=== PATIENT | female | born 1960 | race African-American/Black ===

== ENCOUNTER 2016-07-13 13:14 | Emergency (ER) | payer MEDICAID ==
[~2016-07-13] VITALS: Ht 165.1 cm; Wt 113.4 kg
[2016-07-13 13:52] LABS: Urine RBC None Seen /hpf (0 - 4)
[2016-07-13 13:56] LABS: Urine Bilirubin Negative (Negative); Urine Blood Negative /uL (Negative); Urine Color Yellow (Yellow); Urine Glucose Normal (Normal); Urine Ketone Negative (Negative); Urine Mucus FEW (None Seen); Urine Nitrite Negative (Negative); Urine Squamous Epithelial Cell FEW /hpf (<5); Urine Urobilinogen Normal (Negative)
[2016-07-13 14:11] LABS: Basophils # (auto) 0 uL; Basophils % (auto) 0.7 % (0.0-2.0); Eosinophils # (auto) 0.1 uL; Eosinophils % (auto) 1.5 % (0.0-7.0); Hematocrit 40.6 % (36.0-46.0); Hemoglobin 13.5 g/dL (12.2-16.2); Lymphocytes # (auto) 1.5 uL; Lymphocytes % (auto) 36.9 % (10.0-50.0); Mean Corpuscular Hemoglobin 27.6 pg (28.0-32.0); Mean Corpuscular Hgb Conc. 33.2 g/dL (32.0-36.0); Mean Platelet Volume 7.7 fL (7.4-10.4); Monocytes # (auto) 0.6 uL; Monocytes % (auto) 14.1 % (0.0-12.0); Neutrophils % (auto) 46.8 % (37.0-80.0); Platelet Count (auto) 326 10^3/uL (140-450); Red Cell Distribution Width 13.1 % (11.6-16.0); White Blood Cell 4.2 10^3/uL (4.4-10.8)
[2016-07-13 14:34] LABS: Albumin 3.4 g/dL (3.4-5.0); BUN/Creatinine Ratio 17.5; Bilirubin, Total 0.4 mg/dL (0.2-1.0); Calcium 8.8 mg/dL (8.5-10.1); Potassium 3.8 mmol/L (3.5-5.1); Total Protein 7.2 g/dL (6.4-8.2)
[2016-07-13 17:17] VITALS: BP 138/84
[2016-07-13] MEDS ORDERED: SODIUM CHLORIDE 0.9% 1,000 ML IVB ONE (18:10)
[2016-07-13] MEDS ORDERED: ONDANSETRON HCL 4 MG/2 ML VIAL IV ONE (18:15)
[2016-07-13] MEDS ORDERED: MORPHINE SULFATE 4 MG/ML SYRG IV ONE (18:15)
[2016-07-13] MEDS ORDERED: IBUPROFEN 800 MG TAB PO ONE ×2 (18:20→18:30)
== END 2016-07-13 19:50 | disposition home or self-care (01) ==
LOC: ER 13:14
DX: R10.9 Unspecified abdominal pain (principal); R39.12 Poor urinary stream; R19.7 Diarrhea, unspecified; R11.0 Nausea; I10 Essential (primary) hypertension; Z87.442 Personal history of urinary calculi; Z90.710 Acquired absence of both cervix and uterus; Z98.51 Tubal ligation status
CPT/HCPCS: 36415; 76775; 80053; 81001; 85025; 94761; 96361; 96374; 99285; J2405; J7030